=== PATIENT | male | born 1990 | race Caucasian/White ===

== ENCOUNTER → 2016-08-10 | Outpatient (CLI) | payer MEDICAID | END | disposition home or self-care (01) | LOC: CFH 07:20 | PROVIDERS: ATTEND Nurse Practitioner Family | DX: N43.3 Hydrocele, unspecified (principal); I86.1 Scrotal varices | CPT/HCPCS: 76870 ==

== ENCOUNTER 2017-11-06 03:43 | Emergency (ER) | payer MEDICAID, OTHER ==
[~2017-11-06] VITALS: Ht 167.6 cm; Wt 70.0 kg
[2017-11-06 03:46] VITALS: BP 129/79
[2017-11-06] MEDS ORDERED: ONDANSETRON ODT 4 MG PO ONE (04:00)
[2017-11-06] MEDS ORDERED: ONDANSETRON ODT 4 MG ONE (04:03)
[2017-11-06] MEDS ORDERED: IBUPROFEN 800 MG TABLET ONE (04:12)
[2017-11-06] MEDS ORDERED: IBUPROFEN 200 MG TABLET PO ONE (04:30)
== END 2017-11-06 04:22 | disposition home or self-care (01) ==
LOC: ED 04:00
DX: S06.310A Contusion and laceration of right cerebrum without loss of consciousness, initial encounter (principal); R51 Headache; Y04.0XXA Assault by unarmed brawl or fight, initial encounter; Y93.89 Activity, other specified; Y99.8 Other external cause status; Y92.89 Other specified places as the place of occurrence of the external cause
CPT/HCPCS: 70450; 99284; Q0162